=== PATIENT | female | born 1970 | race Caucasian/White ===

== ENCOUNTER → 2017-02-23 | Outpatient (CLI) | payer BC ==
[~2017-02-23] MED LIST: AMBIEN 10MG TAB10 MG PO; BACTROBAN2% TP; IBUPROFEN 600M600 MG PO; KEFLEX 500MG.500 MG PO; NOMEDS; PERCOCET 325 MG1 TA3 PO; PRAVASTATIN 40M40 MG PO; ULTRAM50 MG PO; VIIBRYD40 MG PO; VOLTAREN75 MG PO
[2017-02-23 16:30] LABS: AMPHETAMINES/METAMPHETAMINES NEGATIVE ng/mL (<1000)
== END ==
LOC: LAB 15:36
PROVIDERS: Emergency Medicine
DX: Z79.899 Other long term (current) drug therapy (principal)

== ENCOUNTER 2017-04-17 15:10 | Day surgery (SDC) | payer BC ==
[~2017-04-17] VITALS: Ht 162.6 cm; Wt 99.8 kg
[~2017-04-17 15:10] MED LIST changes: +CARVEDILOL 25MG25 MG PO; +LYRICA25 MG PO; +PERCOCET1 TAB PO
[2017-04-17 15:51] VITALS: BP 150/96
[2017-04-17 16:24] VITALS: BP 121/99; BP 150/96
--- NOTE | 2017-04-17 16:30 | Procedure Note ---
Procedure detail Date of procedure: 04/17/17 Anesthesiologist: Valentino Barry Complications: None Pre-procedure diagnosis: RIGHT sacroiliitis. Myofascial pain RIGHT lumbar paraspinous muscle. Post-procedure diagnosis: Same. Indications for procedure: Very pleasant 46-year-old white female that comes our procedural clinic today for RIGHT SI joint injection as well as trigger point injections the RIGHT lumbar paraspinous muscle. Procedure detail: Procedure: Right sacroliliac joint injection under fluoroscopy Informed consent was obtained and the risk and benefits of the procedure were explained to the patient.~ The patient was taken to the procedure room and noninvasive monitors were placed including noninvasive blood pressure cuff and pulse oximeter.~ The patient was placed prone on the procedure table.~ The~ right hip was cleansed using Betadine as a cleansing solution.~ C-arm fluorosocpy was used to view the right SI joint.~ The skin and subcutaneous tissues were anesthetized using Lidocaine 1.5% and a 25-gauge needle.~ After this, a 22-gauge spinal needle was inserted under fluoroscopic guidance into the inferior aspect of the right SI joint.~ Omnipaque dye was injected and a good spread was seen throughout the joint.~ After this, approximately 5 mL of bupivacaine 0.25% and Depo-Medrol 40 mg was incrementally injected into the sacroiliac joint.~ The patient tolerated the procedure well with no complications.~ The patient was observed in the Pain Clinic, then discharged home neurologically intact.~ Markers were placed over the RIGHT lumbar paraspinous muscle. Using a 25-gauge needle. 2 mL was injected into four separate locations were injected using a solution containing 0.25 percent Marcaine +1 percent lidocaine and 40 mg of Depo -Medrol. Plan and disposition: Patient was evaluated 10 minutes post procedure. She is doing well. She reports 90 percent of room in terms of her lumbar back pain on the RIGHT side as well as RIGHT hip pain. at 1630
[2017-04-17 16:37] VITALS: BP 117/84
== END 2017-04-17 16:39 | disposition home or self-care (01) ==
LOC: PM 15:10
PROC: 3E0U33Z Introduction of Anti-inflammatory into Joints, Percutaneous Approach (ICD-10-PCS; principal; 2017-04-17)
PROC: 3E0U3BZ Introduction of Anesthetic Agent into Joints, Percutaneous Approach (ICD-10-PCS; 2017-04-17)
PROC: 3E0233Z Introduction of Anti-inflammatory into Muscle, Percutaneous Approach (ICD-10-PCS; 2017-04-17)
PROC: 3E023BZ Introduction of Anesthetic Agent into Muscle, Percutaneous Approach (ICD-10-PCS; 2017-04-17)
DX: M46.1 Sacroiliitis, not elsewhere classified (principal); M79.1 Myalgia
CPT/HCPCS: G0260; J1030; Q9966

== ENCOUNTER → 2017-04-24 | Outpatient (CLI) | payer BC ==
[2017-04-24 13:35] LABS: AMPHETAMINES/METAMPHETAMINES NEGATIVE ng/mL (<1000)
== END ==
LOC: LAB 12:14
PROVIDERS: Emergency Medicine
DX: Z79.899 Other long term (current) drug therapy (principal)